=== PATIENT | male | born 1990 | race Hispanic/Latino ===

== ENCOUNTER 2018-05-07 10:12 | Inpatient (IN) | payer MEDICAID ==
[2018-05-07 10:12] VITALS: BMI 59.8
[2018-05-07 10:56] LABS: BASO # 0.1 K/uL (0.0-0.2); BASO % 0.6 % (0.0-2.0); EOS # 0.1 K/uL (0.0-0.7); EOS % 0.5 % (0.0-4.0); HEMOGLOBIN 14.5 g/dL (12.0-18.0); LYMPH # 1.3 K/uL (1.0-4.3); LYMPH % 12.9 % (20.0-40.0); MEAN CELL VOLUME 90.7 fL (80.0-94.0); MEAN CORPUSCULAR HEMOGLOBIN 30.5 pg (27.0-31.0); MEAN CORPUSCULAR HGB CONC 33.7 g/dL (33.0-37.0); MEAN PLATELET VOLUME 7.4 fL (7.2-11.7); MONO # 0.9 K/uL (0.0-0.8); MONO % 8.4 % (0.0-10.0); NEUT # 7.9 K/uL (1.8-7.0); NEUT % 77.6 % (50.0-75.0); RBC 4.76 Mil/uL (4.40-5.90); RED CELL DISTRIBUTION WIDTH 13.2 % (11.5-14.5); WHITE BLOOD COUNT 10.2 K/uL (4.8-10.8)
[2018-05-07 11:01] LABS: URINE AMORPHOUS SEDIMENT OCC /ul (<OCC); URINE BACTERIA RARE (<OCC); URINE BILIRUBIN NEGATIVE (NEGATIVE); URINE BLOOD NEGATIVE (NEGATIVE); URINE CLARITY Hazy (Clear); URINE COLOR Amber (YELLOW); URINE GLUCOSE (UA) NORMAL (Normal); URINE LEUKOCYTE ESTERASE NEG Leu/uL (Negative); URINE PROTEIN NEGATIVE (NEGATIVE)
[2018-05-07 11:07] LABS: ALB/GLOB RATIO 1.2 (1.0-2.1); ALBUMIN 4.4 g/dL (3.5-5.0); ALT/SGPT 30 U/L (21-72); AST/SGOT 35 U/L (17-59); BLOOD UREA NITROGEN 15 mg/dL (9-20); CALCIUM 9.4 mg/dl (8.6-10.4); GFR NON-AFRICAN AMERICAN > 60
[2018-05-07 11:16] LABS: BARBITURATES, UR NEGATIVE (NEGATIVE); PHENCYCLIDINE, UR NEGATIVE (NEGATIVE)
--- NOTE | 2018-05-07 11:18 | C.PDOC ---
History Of Present Illness 27 y/o male presents to ED requesting detox from Benzo, ETOH, cocaine and Heroin. Patient reports last use was last night and denies SI/HI, hallucinations, chest pain, nausea, vomiting or any other complaints at this time. Time Seen by Provider: 05/07/18 10:25 Chief Complaint (Nursing): Substance Abuse History Per: Patient History/Exam Limitations: no limitations Onset/Duration Of Symptoms: Days Current Symptoms Are (Timing): Still Present Suicide/Self Injury Attempted (Context): None Modifying Factor(s): Alcohol Past Medical History Reviewed: Historical Data, Nursing Documentation, Vital Signs Vital Signs: Last Vital Signs Temp 98.1 F 05/07/18 10:24 Pulse 78 05/07/18 10:24 Resp 18 05/07/18 10:24 BP 142/80 05/07/18 10:24 Pulse Ox 98 05/07/18 10:24 - Medical History PMH: Anemia Surgical History: No Surg Hx - [facility] Procedures CLOSURE SKIN & SUBCUTANEOUS NEC (06/10/02) INJECT/INFUSE ELECTROLYT (03/06/13) INJECT/INFUSE NEC (03/06/13) NEBULIZER THERAPY (10/15/11) TETANUS TOXOID ADMINIST (11/28/11) Family History: States: No Known Family Hx - Social History Hx Tobacco Use: Yes Hx Alcohol Use: Yes Hx Substance Use: Yes (HEROINE) - Immunization History Hx Tetanus Toxoid Vaccination: No Hx Influenza Vaccination: No Hx Pneumococcal Vaccination: No Review Of Systems Cardiovascular: Negative for: Chest Pain Gastrointestinal: Negative for: Nausea, Vomiting Psych: Positive for: Other (substance abuse). Negative for: Suicidal ideation, Withdrawal Physical Exam - Physical Exam Appears: Non-toxic Skin: Warm, Dry, No Rash Head: Atraumatic, Normacephalic Eye(s): bilateral: Normal Inspection Oral Mucosa: Moist Neck: Normal ROM, Supple Cardiovascular: Rhythm Regular Respiratory: Normal Breath Sounds, No Rales, No Rhonchi, No Wheezing Gastrointestinal/Abdominal: Soft, No Tenderness, No Guarding, No Rebound Neurological/Psych: Oriented x3, Normal Speech, Normal Cognition ED Course And Treatment - Laboratory Results Result Diagrams: 05/07/18 10:47 05/07/18 10:47 O2 Sat by Pulse Oximetry: 98 (RA) Pulse Ox Interpretation: Normal Progress Note: Patient was medically cleared and accepted to Detox by . 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 - Scribe Statement The provider has reviewed the documentation as recorded by the Priscillaibemiliano Rodrigues All medical record entries made by the Priscillaibemiliano were at my direction and personally dictated by me. I have reviewed the chart and agree that the record accurately reflects my personal performance of the history, physical exam, medical decision making, and the department course for this patient. I have also personally directed, reviewed, and agree with the discharge instructions and disposition. Decision To Admit - Pt Status Changed To: Hospital Disposition Of: Inpatient - Admit Certification Admit to Inpatient:: After my assessment, the patient will require hospitalization for at least two midnights. This is because of the severity of symptoms shown, intensity of services needed, and/or the medical risk in this patient being treated as an outpatient. - InPatient: Physician Admission Certification: I certify that this patient requires 2 or more midnights of care for the following reason:: needs detox, it takes more then 2 days - . Bed Request Type: Telemetry Admitting Physician: Padmaja Perez Patient Diagnosis: Drug dependence, Alcohol dependence
[2018-05-07 11:41] LABS: BENZODIAZEPINES, UR POSITIVE (NEGATIVE); OPIATES, UR POSITIVE (NEGATIVE)
--- NOTE | 2018-05-07 15:08 | PCM.BM ---
<Sima Vásquez - Last Filed: 05/07/18 15:06> Treatment Plan Problems - Problems identified on initial assessmt potiential for autonomic instability related to alcohol withdrawal Date Initiated: 05/07/18 Time Initiated: 15:07 Assessment reference: NA Status: Active potiential for opiate withdrawal Date Initiated: 05/07/18 Time Initiated: 15:07 Assessment reference: NA Status: Active Treatment assets and liabiliti Patient Assests: ADL independent, physically healthy, cognitively intact Patient Liabilities: substance abuse, legal issue - Milieu Protocol Maintain good personal hygiene: daily Encourage regular showers, daily Remind patient to perform daily oral care, daily Assist patient to perform ADL's Maintain personal safety: every shift Educate patient to report safety concerns to staff, every shift Monitor environment for contraband/sharps Medication safety: Monitor for expected outcome, potential side effects: every shift, Assess barriers to learning: every shift, Assess readiness for medication education: every shift <Vianney Martins - Last Filed: 05/10/18 12:29> Family Contact Family involvement: Family/SO is involved Family contact name: Necktie Stitcher Family contacted how many times per week?: 1 - Goals for Treatment Patient goals for treatment: Complete detox and transition to [facility] for long-term inpatient rehab. Discharge/Continuing Care - Education Needs Education Needs: Patient Medication, Patient Diagnosis/Disease Process, Patient Coping Skills, Patient Anger Management skills, Patient Placement options, Patient Community resources - Discharge Discharge Criteria: No longer exhibiting s/s of withdrawal, Reduction of target symptoms Discharge to:: Substance Abuse Rehab - Treatment Team Participation Patient/Family/SO Statement: 05/10/18 12:31 "I wanna go to [facility] after this. 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 already set it up." Discussed with Family/SO: No Was Patient/Family/SO present at Treatment Team Meeting: Yes <Padmaja Perez - Last Filed: 05/11/18 22:52> - Diagnosis (1) Opioid use disorder, severe, dependence Status: Acute Interventions: 05/10/18 22:51 * Assess 7x/week regarding severity of withdrawal * Educate regarding risks, benefits, side effects and alternatives of medications * Use Motivational Interviewing for abstinence * Use CBT for relapse prevention * Medication management for withdrawal symptoms * Encourage medication assisted treatment * (2) Alcohol dependence Status: Acute Interventions: 05/10/18 22:52 * Assess 7x/week regarding severity of withdrawal * Educate regarding risks, benefits, side effects and alternatives of medications * Use Motivational Interviewing for abstinence * Use CBT for relapse prevention * Medication management for withdrawal symptoms * Encourage medication assisted treatment *
[2018-05-07] MEDS ORDERED: Aluminum Hydroxide/Magnesium Hydroxide Susp (30 mL) PO PRN (15:18)
--- NOTE | 2018-05-08 08:15 | PCM.PSYCH ---
Initial Psychiatric Evaluation - Initial Psychiatric Evaluation Type of Admission: Voluntary Legal Status: Capacity Chief Complaint (in patient's own words): I came in to get help.' History of Present Illness and Precipitating Events: Patient is a 27 years old male who is currently unemployed came to the hospital to get help in detox from heroin, alcohol, cocaine and Xanax. Patient reports history of injecting 15-20 bags of heroin along with 1 gram of cocaine. He also reports of consuming 4-6 mg of Xanax along with almost 1 pint of liquor daily. His last abuse was yesterday. He reports history of one detox in the past at [facility] almost 4-5 years ago. However he he denies any past history of any inpatient psychiatric hospitalizations and denies any history of follow- up with a psychiatrist. Patient reports yesterday he consumed more than 10 bags of heroin with cocaine and alcohol, started experiencing withdrawal symptoms, so he came to the ED to get help. Patient reports withdrawal symptoms including nausea, vomiting, headaches, sweating, anxiety, cramps. He reports irritable mood but denies any feelings of hopelessness or helplessness. He denies any suicidal ideation or any homicidal ideation. He denies any auditory or visual hallucinations and denies any paranoia. He denies any past history of suicide ideation or suicide attempt. Past medical history None reported Current Medications: Active Medications Generic Name Dose Route Start Last Admin Trade Name Freq PRN Reason Stop Dose Admin Al Hydrox/Mg Hydrox/Simethicone 30 ml 05/07/18 15:18 Maalox 30 Ml PO TID PRN Indigestion / Heartburn Chlordiazepoxide 25 mg 05/07/18 18:00 05/08/18 06:50 Librium PO 05/12/18 17:59 25 mg Q6H NISSA Administration Taper Chlordiazepoxide 25 mg 05/07/18 18:00 05/07/18 21:23 Librium PO 25 mg Q4H PRN Administration Alcohol Withdrawal Clonidine HCl 0.1 mg 05/07/18 15:18 05/08/18 00:24 Catapres PO 0.1 mg Q4 PRN Administration COWS Score More or Equal to 5 Folic Acid 1 mg 05/08/18 10:00 Folic Acid PO DAILY NISSA Gabapentin 300 mg 05/07/18 18:15 05/07/18 19:00 Neurontin PO 300 mg BID NISSA Administration Hydroxyzine HCl 50 mg 05/07/18 15:18 05/08/18 00:24 Atarax PO 50 mg Q6H PRN Administration Anxiety Loperamide HCl 2 mg 05/07/18 15:18 Imodium PO Q8 PRN Diarrhea Methadone HCl 0 mg 05/08/18 10:00 Methadone PO 05/12/18 09:59 Q24H NISSA Taper Multivitamins 1 tab 05/08/18 10:00 Hexavitamin PO DAILY NISSA Nicotine 1 patch 05/07/18 18:05 05/07/18 19:00 Nicoderm Cq TD 1 patch DAILY NISSA Administration Ondansetron HCl 4 mg 05/07/18 15:18 Zofran Tab PO Q8 PRN Nausea/Vomiting Pneumococcal Polyvalent Vaccine 0.5 ml 05/10/18 15:47 Pneumovax 23 Vaccine IM 05/10/18 15:48 .ONCE ONE Thiamine HCl 100 mg 05/08/18 10:00 Vitamin B1 Tab PO DAILY NISSA Trazodone HCl 100 mg 05/07/18 22:00 05/07/18 21:22 Desyrel PO 100 mg HS NISSA Administration Past Psychiatric History - Past Psychiatric History Previous Treatment History: Inpatient Pertinent Medical Hx (Current Medical&Sleep Prob, Allergies): Allergies Allergy/AdvReac Type Severity Reaction Status Date / Time No Known Allergies Allergy Verified 10/15/11 12:40 No Known Home Med 11/28/11 Review of Systems - Review of Systems All systems: reviewed and no additional remarkable complaints except - Psychiatric Psychiatric: Anxiety, Irritability. absent: Suicidal Ideation Mental Status Examination - Personal Presentation Personal Presentation: Looks stated age - Affect Affect: Constricted - Motor Activity Motor Activity: Calm - Reliability in Providing Information Reliability in Providing Information: Fair - Speech Speech: Organized - Mood Mood: Anxious - Formal Thought Process Formal Thought Process: No Impairment - Obsessions/Compulsions Obsessions: No Compulsions: No - Cognitive Functions Orientation: Person, Place, Situation, Time Sensorium: Alert Attention/Concentration: Attentive Abstract Thinking: [place] Estimate of Intelligence: Below average Judgement: Imparied, as evidence by: Poor judgement, Intact, as evidence by: Insight regarding need for hospitalization - Risk Risk: Withdrawal, Diminished functioning - Limitations Limitations: Living alone DSM 5 DX - DSM 5 DSM 5 Diagnosis: Opioid use disorder severe Opiate withdrawal Alcohol use disorder severe Alcohol withdrawal Sedative/hypnotic use disorder severe Cocaine use disorder severe - Recommended/Plan of Treatment Treatment Recommendations and Plan of Treatment: Opioid use disorder severe Opiate withdrawal Alcohol use disorder severe Alcohol withdrawal Sedative/hypnotic use disorder severe Cocaine use disorder severe CBT Psychoeducation Supportive therapy and group therapy Librium taper Methadone taper Remeron 30 mg p.o. nightly Neurontin 300 mg p.o. twice daily Trazodone 100 mg p.o. nightly Withdrawal protocol and as needed medications
[2018-05-08] MEDS: Multiple Vitamins Tab PO SCH (09:44)
[2018-05-09] MEDS: Multiple Vitamins Tab PO SCH (10:02)
[2018-05-10] MEDS: Multiple Vitamins Tab PO SCH (10:08)
--- NOTE | 2018-05-10 13:09 | RAD ---
Date of service: 05/10/2018 HISTORY: rehab placement COMPARISON: No prior. TECHNIQUE: Chest PA and lateral FINDINGS: LUNGS: No active pulmonary disease. PLEURA: No significant pleural effusion identified. No pneumothorax apparent. CARDIOVASCULAR: No aortic atherosclerotic calcification present. Normal cardiac size. No pulmonary vascular congestion. OSSEOUS STRUCTURES: No significant abnormalities. VISUALIZED UPPER ABDOMEN: Normal. OTHER FINDINGS: None. IMPRESSION: No active disease.
--- NOTE | 2018-05-10 13:35 | PCM.PYCHPN ---
Psychiatric Progress Note - Psychiatric Progress Note Patient seen today, length of contact: 20 Patient Chief Complaint: I came in to get help Problems Identified/Issues Discussed: The pt is seen, chart reviewed, case discussed with staff. The pt is compliant with medications and reports no side-effects. Symptoms are improving but needs more time to stabilize. Pt attends groups and activities. Support given, psycho-education provided. After care discussed. Pt states he will be with [facility] upon discharge, pt states he has a spot reserved for him following detox. Medication Change: Yes Medical Record Reviewed: Yes Mental Status Examination - Cognitive Function Orientation: Person, Place, Situation, Time Memory: Intact Attention: WNL Concentration: WNL Association: WNL Fund of Knowledge: WNL - Mood Mood: Anxious - Affect Affect: Constricted - Speech Speech: Appropriate - Formal Thought Process Formal Thought Process: No Impairment - Suicidal Ideation Suicidal Ideation: No - Homicidal Ideation Homicidal Ideation: No Goal/Treatment Plan - Goal/Treatment Plan Need for Continued Stay: Discharge may exacerbated symptoms Progress Toward Problem(s) and Goals/Treatment Plan: Taper with Librium Taper with methadone Gabapentin for augmentation if needed Trazodone HS Mirtazapine HS As needed medications All risks, benefits and alternatives of the meds discussed, and the pt agreed and understood. Attend groups and activities Supportive therapy and psychoeducation SC for abstinence CBT for relapse prevention Encourage MAT Refer to rehab or IOP, and self-help groups Teach healthy lifestyle methods, i.e. diet, exercise, meditation Smoking cessation with SC Nicotine patch daily - Smoking Cessation Smoking Cessation Initiated: Yes
[2018-05-10] MEDS: Pneumococcal 23-Valent Vaccine IM ONE ×2 (16:38→16:48)
[2018-05-10] MEDS ORDERED: Influenza Vaccine 60 MCG/0.5 ML SYR (3 yr & up) IM ONE (16:44)
[2018-05-11] MEDS: Multiple Vitamins Tab PO SCH (09:09)
--- NOTE | 2018-05-11 22:50 | PCM.PYCHPN ---
Psychiatric Progress Note - Psychiatric Progress Note Patient seen today, length of contact: 16 min Patient Chief Complaint: "Not well" Problems Identified/Issues Discussed: The pt is seen, chart reviewed, case discussed with staff. Support and psychoeducation given, CBT and PA used briefly No new symptoms reported, improving slowly and needs more time No SEs from medications, risks discussed. After care discussed Medication Change: Yes (etox changes daily) Medical Record Reviewed: Yes Mental Status Examination - Cognitive Function Orientation: Person, Place, Situation, Time Memory: Intact Attention: WNL Concentration: WNL Association: WNL Fund of Knowledge: WNL - Mood Mood: Anxious - Affect Affect: Constricted - Speech Speech: Appropriate - Formal Thought Process Formal Thought Process: No Impairment - Suicidal Ideation Suicidal Ideation: No - Homicidal Ideation Homicidal Ideation: No Goal/Treatment Plan - Goal/Treatment Plan Need for Continued Stay: Discharge may exacerbated symptoms, Severe functional impairment Progress Toward Problem(s) and Goals/Treatment Plan: Continue medications Support and psychoeducation daily Attend groups and activities daily After care planning by counselors HIV testing of high risk [facility]
--- NOTE | 2018-05-12 08:36 | PCM.PYCHDC ---
Mental Status Examination - Mental Status Examination Orientation: Person Discharge Summary - Discharge Note Laboratory Data: Abnormal Lab Results 05/11/18 17:07 HIV 1&2 Antibody Screen Negative Consultations:: List each consultation separately and include: 1. Reason for request. 2. Findings. 3. Follow-up Summary of Hospital Course include:: 1. Description of specific treatment plan utilized for patients during their course of treatmen. 2. Summarize the time- course for resolution of acute symptoms and/or regressed behaviors. 3. Describe issues identified and worked on during hospitalization. 4. Describe medication utilized. 5. Describe medical problems identified and treated. 6. Reassessment of suicide risk Summary of Hospital Course: He went to [facility]. - Diagnosis (1) Opioid use disorder, severe, dependence Current Visit: Yes Status: Acute (2) Alcohol dependence Current Visit: Yes Status: Acute - Final Diagnosis (DSM 5) Condition upon Discharge: STABLE Disposition: HOME/ ROUTINE Follow-up Treatment Plan: Continue medications Support and psychoeducation daily Attend groups and activities daily After care planning by counselors HIV testing bc of high risk bhv Prescriptions/Medication Reconciliation: Gabapentin [Neurontin] 300 mg PO BID #60 cap Mirtazapine [Remeron] 30 mg PO HS #30 tab traZODone [Desyrel] 100 mg PO HS #30 tab
[2018-05-12] MEDS: Multiple Vitamins Tab PO SCH (09:42)
[2018-05-12 11:34] VITALS: RESP 18
[2018-05-12 14:30] VITALS: BP 149/81; PULSE 93; TEMP 99.4; O2SAT 98
== END 2018-05-12 16:36 | disposition home or self-care (01) | DRG 773 ==
LOC: C.ER 10:12 → C.7D 14:43
PROVIDERS: ADMIT Psychiatry & Neurology Psychiatry; ATTEND Psychiatry & Neurology Psychiatry
PROC: GZHZZZZ Group Psychotherapy (ICD-10-PCS; principal; 2018-05-07)
PROC: GZ56ZZZ Individual Psychotherapy, Supportive (ICD-10-PCS; 2018-05-07)
DX: F11.23 Opioid dependence with withdrawal (principal); F10.230 Alcohol dependence with withdrawal, uncomplicated; F17.200 Nicotine dependence, unspecified, uncomplicated; F41.9 Anxiety disorder, unspecified; F19.10 Other psychoactive substance abuse, uncomplicated; Y90.0 Blood alcohol level of less than 20 mg/100 ml